=== PATIENT | female | born 1980 | race Caucasian/White ===

== ENCOUNTER 2021-12-09 13:43 | Emergency (ER) | payer SELFPAY ==
[2021-12-09 13:53] VITALS: BP 175/89; PULSE 116; RESP 24; TEMP 37.6; O2SAT 95; BMI 56.5
--- NOTE | 2021-12-09 14:25 | ECG_ITS ---
[facility] Test Date: 2021-12-09 Pat Name: Becca Pastrana Department: Room: Gender: Female Supervisor Landscape: : 1980 Requested By: Shelby Plascencia Order Number: [id number] MD: Courtney Onofre M.D. Measurements Intervals [place] Rate: 113 P: 63 MD: 143 QRS: 66 QRSD: 86 T: 41 QT: 320 QTc: 440 Interpretive Statements SINUS TACHYCARDIA POSSIBLE LEFT ATRIAL ENLARGEMENT [-0.1mV P-WAVE IN V1/V2] ABNORMAL RHYTHM ECG No previous ECG available for comparison Electronically Signed On 12-09-2021 22:26:40 CDT by Courtney Onofre M.D. [id number] f
--- NOTE | 2021-12-09 14:25 | XR_ITS ---
WS: [id number] Exam: XR chest 1V portable [id number] Date/Time of Exam: 12/09/2021 2:29 PM Reason For Exam: chest pain No priors. Findings: The lungs are clear and fully expanded. Costophrenic angles are sharp. No infiltrates. Bronchovascula r relief appears normal. Cardiac silhouette is unremarkable. Bony elements are intact. XR/XR chest 1V portable [id number] IMPRESSION: Unremarkable chest radiograph.
[2021-12-09 15:42] LABS: Basophils # 0.1 10^3/uL (0.0-0.1); Basophils % 0.5 %; Eosinophils # 0.4 10^3/uL (0.0-0.8); Eosinophils % 2.4 %; Hematocrit 47.5 % (37.0-47.0); Hemoglobin 16.1 g/dL (11.5-15.3); Lymphocytes # 1.1 10^3/uL (0.8-4.8); Lymphocytes % 6.9 %; Mean Corpuscular HGB Conc 33.9 g/dL (30.0-36.0); Mean Corpuscular Hemoglobin 29.3 pg (28.0-34.0); Mean Corpuscular Volume 86.5 fl (81-99); Mean Platelet Volume 10.1 fL (7.4-10.4); Monocytes # 0.9 10^3/uL (0.2-0.9); Monocytes % 5.5 %; Neutrophils # 13.21 10^3/uL (1.8-7.7); Neutrophils % 84.1 %; Nucleated Red Blood Cells % 0 %; Platelet Count 233 10^3/cmm (130-400); Red Blood Count 5.49 10^6/uL (4.1-5.3); Red Cell Distribution Width 13.2 % (12.1-15.1); White Blood Count 15.7 10^3/uL (4.0-10.0)
--- NOTE | 2021-12-09 15:50 | ED_ITS ---
HPI - SOB/Dyspnea General: Chief Complaint: Shortness of Breath/Dyspnea Stated Complaint: Chest pain Sob Time Seen by Provider: 12/09/21 15:49 Source: patient Mode of arrival: ambulatory Limitations: no limitations History of Present Illness: HPI Narrative: 41-year-old female presents emergency room complaining of chest pain worse when she takes a deep breath sense of coughing congestion wheezing and short of breath at home. She had diarrhea for the last 2 days although that has seemed to slow down. She has no known cardiac history. She is morbidly obese. She has not previously been diagnosed as diabetic. She does use an albuterol inhaler at home but states has not been helping very much. Cough is been nonproductive at this point. MD elicited complaint: shortness of breath and cough Onset (ago): day(s) Timing: constant Severity: mild Exacerbating factors: coughing and inspiration Relieving factors: rest Associated symptoms: Reports chest congestion, chest pain, cough and fever(s); Deny abdominal pain, diaphoresis, dizziness, extremity pain, hemoptysis, ligh theadedness, myalgias, nausea, orthopnea, palpitations, paresthesias, polydipsia, polyuria, rash, sense of impending doom, syncope or vomiting Treatment prior to arrival: none Review of Systems Const: Reports: fever(s); Denies: diaphoresis ENMT: Denies: throat pain, ear or mastoid pain, nasal discharge or nasal congestion Card: Reports: chest pain; Denies: palpitations, lightheadedness, syncope or orthopnea Resp: Reports: dyspnea, non-productive cough, wheezing and chest congestion; Denies: productive cough or hemoptysis GI: Denies: abdominal pain, nausea or vomiting : Denies: flank pain, difficulty voiding, dysuria or urinary frequency Musc: Denies: extremity pain Skin/Breast: Denies: rash or pruritus Neuro: Denies: dizziness Endo: Denies: polyuria or polydipsia PFSH ED PFSH: Medical History (Updated 12/09/21 @ 17:11 by Won Torres DO) Obesity Reactive airways dysfunction syndrome Social History (Updated 12/09/21 @ 16:05 by Won Torres DO) Smoking and tobacco status: never smoked Alcohol intake: never Physical Exam Const: COMMON NORMALS: no acute distress GENERAL APPEARANCE: cooperative and comfortable ORIENTATION/CONSCIOUSNESS: Yes awake, Yes oriented to person, Yes oriented to place and Yes oriented to time HENMT: COMMON NORMALS: normocephalic, atraumatic and hearing grossly normal bilaterally HEAD & SCALP: normocephalic and atraumatic Neck/C-Spine: COMMON NORMALS: no JVD Resp: COMMON NORMALS: normal respiratory effort, No retractions and No use of accessory muscles AUSCULTATION: crackles and wheezes Cardio: COMMON NORMALS: no JVD, regular rate, regular rhythm and No murmurs present (Cardio) RATE: regular rate RHYTHM: regular rhythm GI: COMMON NORMALS: Soft to palpation and No hepatosplenomegaly present AUSCULTATION: Yes normoactive bowel sounds PALPATION: Yes Soft to palpation, No Tenderness to palpation present (GI), No Guarding due to palpation present (GI) and Yes No hepatosplenomegaly present Extremity: COMMON NORMALS: normal to inspection, capillary refill normal, no clubbing, cyanosis or edema, no calf tenderness and no pedal edema Neuro: SENSORIUM/ORIENTATION: Yes oriented to person, Yes oriented to place and Yes oriented to time Skin: COMMON NORMALS: no rashes or lesions noted GENERAL SKIN EXAM: no rashes or lesions noted Course Vital Signs: Vital signs: Vital Signs Temperature 99.6 F 12/09/21 13:53 Pulse Rate 99 12/09/21 16:41 Respiratory Rate 18 12/09/21 16:41 Blood Pressure 179/130 12/09/21 16:19 Pulse Oximetry 94 12/09/21 16:41 MDM - SOB/Dyspnea Medical Decision Making Improved with nebulizers and steroids. Or waiting on the COVID screen. We will go and discharge her home contact her with the results we will put her on st eroids and albuterol inhaler as well as doxycycline because she had a mildly productive cough return if she has further problems follow-up with her primary care doctor within the week. Medical Records I reviewed the patient's medical records. Lab Data I reviewed the patient's lab results. : 12/09/21 15:30 12/09/21 15:30 Labs/Radiology: Radiology Impressions Chest X-Ray 12/09/21 14:25 IMPRESSION: Unremarkable chest radiograph. Laboratory Results WBC 15.7 10^3/uL (4.0-10.0) H 12/09/21 15:30 RBC 5.49 10^6/uL (4.1-5.3) H 12/09/21 15:30 Hgb 16.1 g/dL (11.5-15.3) H 12/09/21 15:30 Hct 47.5 % (37.0-47.0) H 12/09/21 15:30 MCV 86.5 fl (81-99) 12/09/21 15: MCH 29.3 pg (28.0-34.0) 12/09/21 15: MCHC 33.9 g/dL (30.0-36.0) 12/09/21 15: RDW 13.2 % (12.1-15.1) 12/09/21 15: Plt Count 233 10^3/cmm (130-400) 12/09/21 15: MPV 10.1 fL (7.4-10.4) 12/09/21 15:30 Neut % (Auto) 84.1 % 12/09/21 15: Lymph % (Auto) 6.9 % 12/09/21 15:30 [place] % (Auto) 5.5 % 12/09/21 15:30 Eos % (Auto) 2.4 % 12/09/21 15:30 Baso % (Auto) 0.5 % 12/09/21 15: Neut # (Auto) 13.21 10^3/uL (1.8-7.7) H 12/09/21 15:30 Lymph # (Auto) 1.1 10^3/uL (0.8-4.8) 12/09/21 15:30 [place] # (Auto) 0.9 10^3/uL (0.2-0.9) 12/09/21 15:30 Eos # (Auto) 0.4 10^3/uL (0.0-0.8) 12/09/21 15: Baso # (Auto) 0.1 10^3/uL (0.0-0.1) 12/09/21 15:30 Nucleated RBC % (auto) 0 % 12/09/21 15:30 Nucleated RBCs # 0.0 /100WBC 12/09/21 15:30 Sodium 134 mmol/L (136-145) L 12/09/21 15:30 Potassium 4.6 mmol/L (3.5-5.1) 12/09/21 15:30 Chloride 97 mmol/L (98-107) L 12/09/21 15:30 Carbon Dioxide 28 mmol/L (22-29) 12/09/21 15:30 Anion Gap 13.6 (5-19) 12/09/21 15:30 BUN 10 mg/dL (6-20) 12/09/21 15:30 Creatinine 0.9 mg/dL (0.5-0.9) 12/09/21 15:30 GFR Calculation 69.0 mL/min (90-130) L 12/09/21 15:30 Glucose 106 mg/dL (65-115) 12/09/21 15:30 Calculated Osmolality 277 mOsm/kg (285-295) L 12/09/21 15:30 Calcium 9.1 mg/dL (8.5-10.5) 12/09/21 15:30 Total Bilirubin 0.6 mg/dL (0.15-1.2) 12/09/21 15:30 AST 16 U/L (0-32) 12/09/21 15:30 ALT 21 U/L (0-33) 12/09/21 15:30 Alkaline Phosphatase 83 IU/L (35-105) 12/09/21 15:30 Troponin T Baseline 6 ng/L (0-10) 12/09/21 15:30 Total Protein 7.7 g/dL (6.6-8.7) 12/09/21 15:30 Albumin 4.7 g/dL (3.5-5.2) 12/09/21 15:30 Globulin 3.0 g/dL (1.3-4.6) 12/09/21 15:30 Discharge Plan Discharge Patient Disposition: Home Clinical Impression: Asthma with exacerbation Condition: Stable Prescriptions: New doxycycline hyclate 100 mg capsule 100 mg PO BID 10 Days Qty: 20 0RF prednisone 20 mg tablet 20 mg PO TID Qty: 15 0RF Rx Instructions: 1 p.o. 3 times daily x3 days, 1 p.o. twice daily x2 days, 1 p.o. daily x2 days albuterol sulfate 90 mcg/actuation HFA aerosol inhaler 2 inh INHALATION Q4H PRN (Reason: shortness of breath or wheezing) Qty: 18 0RF No Action aspirin 325 mg Tablet 325 mg PO EVERY OTHER DAY PRN (Reason: Pain) 0RF Vicks DayQuil Cough 5 mg/5 mL Syrup 30 mg PO BID PRN (Reason: Cough) 0RF Discharge Orders: Discharge ED (Routine); Ordered 12/09/21 Ordered By: Won Torres Discharge Diet: Usual diet Discharge Activity: Limit activity as instructed Patient Instructions: Opioid Safety Activity Restrictions/Additional Instructions: COVID test is pending. We will contact you when the results are available. Recommend that you maintain self quarantine until that time. Coding Level of Care Code ED [facility] for Jose Daniel Fwd Exam Comprehensive
[2021-12-09 16:08] LABS: Troponin(5th) Baseline 6 ng/L (0-10)
[2021-12-09] MEDS: dexamethasone 10 mg/mL INJ IM (16:12)
[2021-12-09 16:19] VITALS: BP 179/130; PULSE 93; RESP 20; O2SAT 93
[2021-12-09 16:24] LABS: Alanine Aminotransferase 21 U/L (0-33); Albumin Level 4.7 g/dL (3.5-5.2); Alkaline Phosphatase 83 IU/L (35-105); Anion Gap 13.6 (5-19); Aspartate Amino Transferase 16 U/L (0-32); Blood Urea Nitrogen 10 mg/dL (6-20); Calcium 9.1 mg/dL (8.5-10.5); Carbon Dioxide 28 mmol/L (22-29); Chloride 97 mmol/L (98-107); Glucose 106 mg/dL (65-115); Osmolality Calculated 277 mOsm/kg (285-295); Potassium 4.6 mmol/L (3.5-5.1); Sodium 134 mmol/L (136-145); Total Bilirubin 0.6 mg/dL (0.15-1.2); Total Protein 7.7 g/dL (6.6-8.7)
--- NOTE | 2021-12-09 16:25 | ECG_ITS ---
[facility] Test Date: 2021-12-09 Pat Name: Becca Pastrana Department: Room: Gender: Female Supervisor Fabrication: : 1980 Requested By: Shelby Plascencia Order Number: [id number] MD: Courtney Onofre M.D. Measurements Intervals [place] Rate: 108 P: 60 [place]: 145 QRS: 74 QRSD: 89 T: 53 QT: 323 QTc: 433 Interpretive Statements SINUS TACHYCARDIA POSSIBLE LEFT ATRIAL ENLARGEMENT [-0.1mV P-WAVE IN V1/V2] MINIMAL ST DEPRESSION [0.025+ mV ST DEPRESSION] ABNORMAL RHYTHM ECG Compared to ECG 12/09/2021 14:00:12 ST (T wave) deviation now present Electronically Signed On 12-09-2021 22:28:45 CDT by Courtney Onofre M.D. [id number]
[2021-12-09] MEDS: ipratropium-albuterol 3 mL Neb INHALATION (16:38)
[2021-12-09 16:41] VITALS: PULSE 99; RESP 18; O2SAT 94
--- NOTE | 2021-12-09 16:41 | PC.NURSE ---
EKG done at 1635 and shown to ER doctor
[2021-12-09 18:42] LABS: Adenovirus Not Detected (NOT DETECT); Chlamydia Pneumoniae Not Detected (NOT DETECT); Coronavirus 229E,HKU1,NL63,OC4 Not Detected (NOT DETECT); Human Metapneumovirus Not Detected (NOT DETECT); Human Rhinovirus/Enterovirus Detected (NOT DETECT); Influenza A Not Detected (NOT DETECT); Influenza A H1 Not Detected (NOT DETECT); Influenza A H1-2009 Not Detected (NOT DETECT); Influenza A H3 Not Detected (NOT DETECT); Influenza B Not Detected (NOT DETECT); Mycoplasma Pneumoniae Not Detected (NOT DETECT); Parainfluenza Virus Type 1 Not Detected (NOT DETECT); Parainfluenza Virus Type 2 Not Detected (NOT DETECT); Parainfluenza Virus Type 3 Not Detected (NOT DETECT); Parainfluenza Virus Type 4 Not Detected (NOT DETECT); Respiratory Syncytial Virus A Not Detected (NOT DETECT); Respiratory Syncytial Virus B Not Detected (NOT DETECT); SARS-COV-2 Not Detected (NOT DETECT)
[2021-12-09 19:03] LABS: Human Metapneumovirus Not Detected (NOT DETECT); Human Rhinovirus/Enterovirus Detected (NOT DETECT); Results from Genmark
== END 2021-12-09 17:58 | disposition home or self-care (01) ==
PROVIDERS: Physician Assistant; Emergency Provider Family Medicine
DX: J45.901 Unspecified asthma with (acute) exacerbation (principal); Z79.82 Long term (current) use of aspirin; Z20.822 Contact with and (suspected) exposure to COVID-19
CPT/HCPCS: 71045; 80053; 84484; 85025; 87635; 87801; 93005; 94640; 96372; 99284; J1100

== ENCOUNTER 2024-09-19 16:26 | Emergency (ER) | payer OTHER, SELFPAY ==
[2024-09-19 16:34] VITALS: BP 157/93; PULSE 98; RESP 19; TEMP 36.9; O2SAT 97; BMI 56.5
--- NOTE | 2024-09-19 17:29 | W.ED.SKABFB ---
HPI - Skin/Abscess/Foreign Bdy General: Chief complaint: Skin/Abscess/Foreign Body Stated complaint: pain in tail bone area Time Seen by Provider: 09/19/24 17:13 Source: patient Mode of arrival: ambulatory Limitations: no limitations History of Present Illness: 44-year-old female who states she has had a cyst over her coccyx that she has noticed for 3 days. States it has been hard painful rates her pain a 6 out of 10 she denies any fever she denies any drainage from the area she has had abscesses in the past. Associated symptoms: Deny chills, fever(s), nausea or vomiting Related Data Home Medications ?Medication ?Instructions ?Recorded ?Confirmed aspirin 325 mg tablet 325 mg PO EVERY OTHER DAY PRN Pain 12/09/21 12/09/21 dextromethorphan HBr 5 mg/5 mL 30 mg PO BID PRN Cough 12/09/21 12/09/21 oral syrup (Vicks DayQuil Cough) Previous Rx's ?Medication ?Instructions ?Recorded albuterol sulfate 90 mcg/actuation 2 inh inhalation Q4H PRN shortness 12/09/21 aerosol inhaler of breath or wheezing #18 grams prednisone 20 mg tablet 20 mg PO TID #15 tabs 12/09/21 clindamycin HCl 300 mg capsule 300 mg PO Q8H 7 days #21 caps 09/19/24 Allergies Allergy/AdvReac Type Severity Reaction Status Date / Time Sulfa (Sulfonamide Allergy Unknown Verified 12/09/21 16:17 Antibiotics) sulfite Allergy Unknown Verified 12/09/21 16:17 Review of Systems Const: Denies: fever(s), chills, body aches or change in appetite ENMT: Denies: throat pain or dental pain Card: Denies: chest pain Resp: Denies: dyspnea GI: Denies: abdominal pain, nausea, vomiting or diarrhea Musc: Denies: neck pain or back pain Skin/Breast: Reports: erythema; Denies: rash Neuro: Denies: headache(s) PFS ED PFSH: Medical History Reactive airways dysfunction syndrome Obesity Social History Smoking and tobacco/nicotine status: never used tobacco/nicotine Alcohol intake: never Physical Exam Const: COMMON NORMALS: no acute distress, patient oriented x3 and healthy appearing HENMT: COMMON NORMALS: normocephalic and atraumatic HEAD & SCALP: normocephalic and atraumatic Eye: COMMON NORMALS: conjunctivae normal CONJUNCTIVA: Yes conjunctivae normal Neck/C-Spine: COMMON NORMALS: full ROM and supple Chest: COMMONS NORMALS: normal inspection of the chest Resp: COMMON NORMALS: normal respiratory effort Cardio: COMMON NORMALS: regular rate RATE: regular rate Back/Pelvis: OTHER: 4 cm pilonidal cyst noted no drainage at this time slight erythema Extremity: COMMON NORMALS: normal to inspection and full ROM Neuro: COMMON NORMALS: patient oriented x3, moves all extremities and no focal motor deficits Psych: COMMON NORMALS: mental status grossly normal, Normal thought process present and cooperative THOUGHT PROCESS: Normal thought process present Skin: COMMON NORMALS: no rashes or lesions noted and no wounds GENERAL SKIN EXAM: no rashes or lesions noted Procedures Abscess I/D Site: other (upper buttocks) Local Anesthetic: lidocaine 1% Amount of anesthesia used (mL): 10 Technique: incised with #11 blade Irrigation: No Packing used?: iodoform Course Vital Signs: Vital signs: Vital Signs Temperature 98.5 F 09/19/24 16:34 Pulse Rate 98 09/19/24 16:34 Respiratory Rate 19 H 09/19/24 16:34 Blood Pressure 157/93 09/19/24 16:34 Pulse Oximetry 97 09/19/24 16:34 Oxygen Delivery Me thod Room Air 09/19/24 16:34 MDM - Skin/Abscess/Foreign Bdy Medicial Decision Making Patient presents here with a abscess to her buttocks did incise and drain and packed the abscess she is to remove the packing herself will return in 2 days for packing removal we will place her on clindamycin she is to do soaks she is return if worsening she understands agrees to plan. Medical Records I reviewed the patient's medical records. No radiology studies performed this visit Discharge Plan Discharge Patient Disposition: Home Clinical Impression: Abscess of skin or subcutaneous tissue Condition: Stable Prescriptions: New clindamycin HCl 300 mg capsule 300 mg PO Q8H 7 Days Qty: 21 0RF No Action aspirin 325 mg Tablet 325 mg PO EVERY OTHER DAY PRN (Reason: Pain) Vicks DayQuil Cough 5 mg/5 mL Syrup 30 mg PO BID PRN (Reason: Cough) prednisone 20 mg tablet 20 mg PO TID Qty: 15 0RF Rx Instructions: 1 p.o. 3 times daily x3 days, 1 p.o. twice daily x2 days, 1 p.o. daily x2 days albuterol sulfate 90 mcg/actuation HFA aerosol inhaler 2 inh INHALATION Q4H PRN (Reason: shortness of breath or wheezing) Qty: 18 0RF Discharge Orders: Discharge ED (Routine); Ordered 09/19/24 Ordered By: Patricia Reid Discharge Diet: Advance as tolerated Discharge Activity: Resume usual activity Patient Instructions: Abscess (ED) Print Language: Greek Coding Level of Care Code ED Supervisor [employer] for Jose Daniel Wells
[2024-09-19] MEDS: lidocaine 1% 10 ML INJ SUBCUT (17:37)
== END 2024-09-19 17:55 | disposition home or self-care (01) ==
PROVIDERS: Emergency Provider Emergency Medicine
DX: L02.31 Cutaneous abscess of buttock (principal); Z79.82 Long term (current) use of aspirin
CPT/HCPCS: 10060; 87070; 99283; J9999